=== PATIENT | female | born 1985 | race Asian ===

== ENCOUNTER 2017-07-25 05:18 | Emergency (ER) | payer OTHER ==
[~2017-07-25] VITALS: Ht 165.1 cm; Wt 70.3 kg
== END 2017-07-25 06:04 | disposition home or self-care (01) ==
LOC: ED 05:18
PROC: 0HQFXZZ Repair Right Hand Skin, External Approach (ICD-10-PCS; principal; 2017-07-25)
DX: S61.411A Laceration without foreign body of right hand, initial encounter (principal); W45.8XXA Other foreign body or object entering through skin, initial encounter; Y92.89 Other specified places as the place of occurrence of the external cause
CPT/HCPCS: 99282

== ENCOUNTER 2019-03-26 18:48 | Emergency (ER) | payer OTHER ==
[~2019-03-26] VITALS: Ht 167.6 cm; Wt 72.6 kg
[2019-03-26 20:34] VITALS: BP 121/64; TEMP 98.5
== END 2019-03-26 20:34 | disposition home or self-care (01) ==
LOC: ED 18:48
DX: M54.5 Low back pain (principal); G89.29 Other chronic pain; J06.9 Acute upper respiratory infection, unspecified; F17.210 Nicotine dependence, cigarettes, uncomplicated; X50.9XXA Other and unspecified overexertion or strenuous movements or postures, initial encounter; Y92.69 Other specified industrial and construction area as the place of occurrence of the external cause
CPT/HCPCS: 87502; 87651; 96372; 99283; J1885

== ENCOUNTER 2021-08-08 22:11 | Emergency (ER) | payer OTHER ==
[~2021-08-08] VITALS: Ht 167.6 cm; Wt 84.4 kg
[2021-08-08 22:20] VITALS: BP 135/95; TEMP 98.4
== END 2021-08-09 01:08 | disposition home or self-care (01) ==
LOC: ED 22:11
DX: S00.83XA Contusion of other part of head, initial encounter (principal); H11.32 Conjunctival hemorrhage, left eye; S02.832A Fracture of medial orbital wall, left side, initial encounter for closed fracture; Y04.2XXA Assault by strike against or bumped into by another person, initial encounter; Y92.89 Other specified places as the place of occurrence of the external cause
CPT/HCPCS: 96372; 99283; J1885